=== PATIENT | male | born 1945 | race Caucasian/White ===

== ENCOUNTER 2016-09-06 05:45 | Outpatient (CLI) | payer MEDICARE, BC ==
[~2016-09-06] VITALS: Ht 190.5 cm; Wt 87.2 kg
--- NOTE | ~2016-09-06 | CATH ---
Cardiac Diagnostic Report Demographics Patient Name NONHOFF REBECCA Lowe Gender Male Date of 1945 Age 71 year(s) Patient Number [id number] Date of Study 09/06/2016 Visit Number [id number] Room Number G6399 [place] [id number] Ht 190.5 cm Wt 87.2 kg Referring Matt Jo Primary Physician Physician Performing Efstratiou Secondary Physician Physician Lilo Lowe MD Diagnostic Efstratiou Assisting Physician Physician Lilo Lowe MD Interventional Physician Outsole Leveler Physician Findings and Conclusions Diagnostic Findings and Conclusion Mild diffuse CAD. Mild cardiomyopathy. LV is mildly dilated. EF 50-55%. Diagnostic Recommendations Start aspirin, atorvastatin, and lisinopril. Procedure Description The patient was brought to the diagnostic cardiac catheterization-EP laboratory in the fasting, non-sedated state. Informed consent was obtained in the written and verbal form after the risks and benefits were explained. The patient had no further questions and agreed to proceed. The planned puncture-incision site(s) were shaved and prepped with ChloraPrep and draped in the usual sterile manner. Conscious sedation delivered by a registered nurse under physician guidance. Surface ECG rhythm, blood pressure measurement, and pulse oximetry were monitored throughout the procedure. Arterial access. The access site was infiltrated with lidocaine. The vessel was entered with the Seldinger technique. A sheath was advanced into the vessel and used for catheter placement. Selective left coronary angiography. A catheter was advanced into the left coronary vessel ostium under Fluoroscopic guidance. Contrast was injected by hand. Images were obtained in multiple projections. Selective right coronary angiography. A catheter was advanced into the right coronary vessel ostium under fluoroscopic guidance. Contrast was injected by hand. Images were obtained in multiple projections. Left heart catheterization with ventriculography. A catheter was advanced across the aortic valve to the left ventricle under fluoroscopic guidance. Resting hemodynamics were obtained. With the catheter at the left ventricular apex, contrast was injected. Images were obtained in MALAY projections. Post-ventriculography LV pressure was obtained. The catheter was gradually withdrawn into the aorta with continuous pressure recording. Arterial artery hemostasis was achieved. The patient was transferred to a regular nursing floor via cart accompanied by a nurse. The patient left the laboratory in stable condition. Diagnostic Cath Status: Elective Procedure Procedure Type Diagnostic procedure:Ventriculogram:, Left, Angiography:, Coronary Angios w/[facility] Indications: Positive Nuclear: Low, Chest pain and left ventricular hypertrophy. The procedure was explained in detail to the patient. Risks, complications and alternative treatments were reviewed. Written consent was obtained. Medications Reviewed with Patient prior to Procedure. Angiographic Findings Dominance: Right Cardiac Arteries and Lesion Findings LMCA: Lesion on LMCA: Distal subsection.20% stenosis . LAD: Lesion on Prox LAD: Ostial.25% stenosis . Lesion on Mid LAD: Mid subsection.20% stenosis . LCx: Lesion on Prox CX: Proximal subsection.20% stenosis . Comments:Diffuse Lesion on 1st [place]: Proximal subsection.30% stenosis . RCA: Lesion on Prox RCA: Proximal subsection.20% stenosis . Lesion on Dist RCA: Distal subsection.20% stenosis . Coronary Tree Procedure Data Procedure Date Date: 09/06/2016Start: 08:00 AMEnd: 08:21 AM Entry Locations - Retrograde Percutaneous access was performed through the Right Radial artery (Primary location). A 6 Fr sheath was inserted. Hemostasis was successfully obtained using Mechanical Compression. Closure Comments: 10 ml's in radial band placed by Kelsey.. Procedure Medications Order and Administration + + + +--------+ !Time !Medication !Dosage !Route ! + + + +--------+ !09/06/2016 07:57 AM !Versed !1 mg !I.V. ! + + + +--------+ !09/06/2016 08:03 AM !Radial Nitroglycerin !200 mcg !I.A. ! + + + +--------+ !09/06/2016 08:03 AM !Radial Heparin (ACC_3) !5000 units !I.A. ! + + + +--------+ Devices Used - A6 Fr. BS JR 4 Diag. Catheterwas used for:LV Pressures. - A6 Fr. BS JR 4 Diag. Catheterwas used for:Right coronary angiography. - A6 Fr. BS JL 3.5 Diag. Catheterwas used for:Left coronary angiography. - A6 Fr. BS Angled Pigtail Diag. Catheterwas used for:Left ventriculography. Contrast Material - Isovue 11520 ml Fluoroscopy Time: Diagnostic: 3:54 minutes. Total: 3:54 minutes. Fluoroscopy Dose: Diagnostic: 876 mGy. Total: 876 mGy. Estimated Blood Loss: 10 ml. Medical History Performed Procedures and Imaging Results - Stress testing with SPECT MPIwas performed. Results were: Positive. Risk/Extent of ischemia was: Low risk. History of Disease + +----+--------+ !Diagnosis !Date!Comments! + +----+--------+ !Stroke ! ! ! + +----+--------+ !LV dysfunction ! ! ! + +----+--------+ Allergies - No known allergies. Risk Factors The patient risk factors include:cerebrovascular disease, hypertension, last creatinine: 1 mg/dl, creatinine clearance: 85.99 ml/min, dyslipidemia and former tobacco use. Admission Data Admission Date: 09/06/2016 Admission Time: 05:45 AM Admit Source: Other Insurance Payors: Medicare. Admission Medications + +------+------+ + + + + !Medication!Dosage!Times !Last !Last !Administered !Comments ! ! ! !Per !Delivery !Delivery ! ! ! ! ! !Day !Date !Time ! ! ! + +------+------+ + + + + !Aspirin ! ! !09/06/2016 !12:00 AM !Yes ! ! !(any) ! ! ! ! ! ! ! 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 VA LV function assessed as:Normal. Ejection Fraction - Method: Radionucleotide. EF%: 54. - 09/06/2016 - Method: LV gram. EF%: 50. LVA Segment Contractility 1 - Normal 3 - Mild 5 - Severe 7 - Dyskinesis hypokinesis hypokinesis 2 - 4 - Moderate 6 - Akinesis 8 - Aneurysm Hypokinesis hypokinesis Snapshots Hemodynamics Condition: Rest O2 Consumption: Estimated: 231.31Heart Rate: 47 bpm Pressures (mmHg) +-----+ + !Site !Pressure ! +-----+ + !LV !128/0 ,8 ! +-----+ + !LV !134/0 ,7 ! +-----+ + !AO !130/63 (92) ! +-----+ + !LV !134/-1 ,7 ! +-----+ + !AO !133/65 (93) ! +-----+ + Valve Gradients and Areas + +---------+---------+---------+ +---------+ + !Valve !Peak !Mean !Area !Index !Flow !Source ! + +---------+---------+---------+ +---------+ + !Aortic !4 !7 ! ! ! ! ! + +---------+---------+---------+ +---------+ + !Aortic !4 !7 ! ! ! ! ! + +---------+---------+---------+ +---------+ + Shunts Oxygen Values O2 Capacity 172.72 O2 Consumption 231.31 Discharge Data Discharge Date: 09/06/2016 Hospital Status: Outpatient Signatures dtt: Lisette Norris dtd: 09/06/16 0800 Physician Self Edit
[~2016-09-06 05:45] MED LIST: CPAP INH
[2016-09-06 07:28] LABS: BASOPHIL # 0.1 K/uL (0.0-0.2); BASOPHIL % 1.6 %; EOSINOPHIL # 0.2 K/uL (0.0-0.5); EOSINOPHIL % 5.2 %; HEMATOCRIT 37.6 % (37.0-53.0); HEMOGLOBIN 12.7 g/dL (11.0-16.0); LYMPHOCYTE % 26.9 %; MCH 31.2 pg (27.0-34.0); MCHC 33.8 gm/dL (32.0-36.5); MCV 92.4 fl (83.0-98.0); MONOCYTE # 0.6 K/uL (0.0-1.0); MONOCYTE % 15.9 %; MPV 12.9 fl (9.4-12.4); NEUTROPHIL # (ANC) 1.8 K/uL (1.4-9.0); NEUTROPHIL % 50.4 %; NRBC % 0 /100WBC (0-0.00); PLATELET COUNT 137 K/uL (150-450); RBC 4.07 M/uL (3.50-5.50); RDW-CV 13.9 % (11.9-14.6); WBC 3.6 K/uL (4.0-11.0)
[2016-09-06 07:41] LABS: INR - (THERAPEUTIC) 1.06 (0.92-1.07); PROTIME 11.1 SECONDS (9.8-11.4); PTT 26 SECONDS (25-32)
[2016-09-06 07:44] LABS: ALBUMIN 3.8 gm/dL (3.5-5.0); ANION GAP 11.1 (10.0-19.0); CALCIUM 8.4 mg/dL (8.5-10.5); POTASSIUM 4.1 mMol/L (3.7-5.1); TOTAL BILIRUBIN 0.6 mg/dL (0.0-1.5); TOTAL PROTEIN 7.1 g/dL (6.0-8.4)
[2016-09-06] MEDS ORDERED: ASPIRIN EC81 MG PO (08:59)
[2016-09-06] MEDS ORDERED: LIPITOR20 M1 PO (09:00)
[2016-09-06] MEDS ORDERED: ZESTRIL2.5 MG PO (09:00)
== END 2016-09-06 11:30 | disposition disaster alternative care site (69) ==
LOC: GPOC 05:45 → GPCU 05:45 → GPOC 06:00
PROVIDERS: Internal Medicine Cardiovascular Disease
PROC: 4A023N7 Measurement of Cardiac Sampling and Pressure, Left Heart, Percutaneous Approach (ICD-10-PCS; principal; 2016-09-06)
PROC: B216YZZ Fluoroscopy of Right and Left Heart using Other Contrast (ICD-10-PCS; 2016-09-06)
DX: R94.39 Abnormal result of other cardiovascular function study (principal); R07.9 Chest pain, unspecified; R00.1 Bradycardia, unspecified
CPT/HCPCS: C1894; J1644; J2001; J2250; J3010; J7030